=== PATIENT | male | born 1955 | race Caucasian/White ===

== ENCOUNTER → 2022-07-31 | Outpatient (REF) | payer OTHER, MEDICARE ==
[~2022-07-31] MED LIST: ATOR1TAB21 PO; PIOG1TAB36 PO
== END ==
LOC: CANPREREF → M LAB REF 16:42
PROVIDERS: ATTEND Surgery
DX: Z01.818 Encounter for other preprocedural examination (principal)

== ENCOUNTER 2022-08-12 06:39 | Day surgery (SDC) | payer BC, OTHER ==
[~2022-08-12] VITALS: Ht 188 cm; Wt 87.1 kg
[~2022-08-12 06:39] MED LIST changes: +NS 1,000 ML IV ONE
[2022-08-12] MEDS ORDERED: LIDOCAINE 2% 100MG/5ML SDV (FOR ANES.) As Ordered ONE (07:05)
[2022-08-12] MEDS ORDERED: propofoL 200 MG/20 ML VIAL As Ordered ONE ×2 (07:05→07:51)
[2022-08-12 08:25] VITALS: BP 134/62
== END 2022-08-12 08:51 | disposition home or self-care (01) ==
LOC: M OPP 06:39
PROVIDERS: ATTEND Internal Medicine Gastroenterology
DX: Z12.11 Encounter for screening for malignant neoplasm of colon (principal); D12.6 Benign neoplasm of colon, unspecified; K64.4 Residual hemorrhoidal skin tags; K64.8 Other hemorrhoids; K57.30 Diverticulosis of large intestine without perforation or abscess without bleeding; Z79.84 Long term (current) use of oral hypoglycemic drugs; E11.9 Type 2 diabetes mellitus without complications